=== PATIENT | male | born 1965 | race African-American/Black ===

== ENCOUNTER 2022-11-17 20:17 | Emergency (ER) | payer BC ==
[~2022-11-17] VITALS: Ht 170.2 cm; Wt 93.0 kg
[2022-11-17] VITALS (10 sets, daily range): BP systolic 88–120; BP diastolic 60–83
[2022-11-17 22:50] LABS: IMMATURE GRANULOCYTES 0.1 % (0.0-5.0); MEAN CORPUSCULAR HGB 34.1 pG CALC (26.0-32.0); MEAN CORPUSCULAR HGB CONC 32.7 g/dL CAL (32.0-36.0); PLATELET COUNT 203 thou/uL (130-400); RED BLOOD COUNT 4.16 mill/uL (4.70-6.10); RED CELL DISTRI WIDTH 12.4 % (11.5-15.5)
[2022-11-17 22:51] LABS: HEMATOCRIT 43.4 % (39.0-50.0); HEMOGLOBIN 14.2 g/dl (14.0-18.0); MEAN CELL VOLUME 104.3 fL CALC (80.0-100.0)
[2022-11-17 22:55] LABS: MANUAL DIFFERENTIAL YES
[2022-11-17 22:58] LABS: ALBUMIN 3.3 g/dL (3.2-5.0); ALKALINE PHOSPHATASE 65 u/l (38-126); ANION GAP 11 (6-22 (CALC)); BUN 11 mg/dL (9-20); BUN/CREATININE RATIO 11 (12-20 (CALC)); CARBON DIOXIDE 26 mmol/l (22-30); CHLORIDE 105 mmol/l (95-108); GFR FOR AFR.AMER. > 60 ML/MIN (>=60 (CALC)); GFR OTHER RACES > 60 ML/MIN (>=60 (CALC)); POTASSIUM 3.9 mmol/l (3.5-5.1); SGOT/AST 38 u/l (17-59); SODIUM 139 mmol/l (137-146); TOTAL PROTEIN 6.8 g/dL (6.3-8.2)
[2022-11-17 22:59] LABS: URINE BILIRUBIN - DIPSTICK NEGATIVE (NEGATIVE); URINE BLOOD DIPSTICK SMALL (NEGATIVE); URINE COLOR YELLOW; URINE GLUCOSE - DIPSTICK NEGATIVE (NEGATIVE); URINE KETONE NEGATIVE (NEGATIVE); URINE LEUK ESTERASE NEGATIVE (NEGATIVE); URINE PH 5.5 (4.5-8.0); URINE PROTEIN - DIPSTICK NEGATIVE (NEG-TRACE); URINE SPECIFIC GRAVITY 1.025; URINE UROBILINOGEN - DIPSTICK 0.2 E.U./dL (0.2)
[2022-11-17 23:05] LABS: BAND 0 % (0-8)
[2022-11-17 23:06] LABS: PLATELET ESTIMATE NORMAL
[2022-11-17 23:07] LABS: URINE NITRITE - DIPSTICK NEGATIVE (Negative)
[2022-11-17 23:08] LABS: URINE RBC 0-2 RBC/hpf (0-5)
[2022-11-17 23:09] LABS: URINE SQUAMOUS EPITHELIAL CELL RARE EPI/hpf (0-FEW)
[2022-11-17 23:14] LABS: BILIRUBIN, TOTAL 0.7 mg/dL (0.2-1.3)
[2022-11-18] VITALS (11 sets, daily range): BP systolic 92–117; BP diastolic 51–78
[2022-11-18] MEDS ORDERED: ULTRAM50 MG PO (01:58)
[2022-11-18] MEDS ORDERED: TAM75CAP PO (01:58)
== END 2022-11-18 02:59 | disposition home or self-care (01) | DRG 153 ==
LOC: ED 20:17
PROVIDERS: Emergency Medicine
DX: J11.1 Influenza due to unidentified influenza virus with other respiratory manifestations (principal); D72.110 Idiopathic hypereosinophilic syndrome [IHES]; F19.10 Other psychoactive substance abuse, uncomplicated; Z20.822 Contact with and (suspected) exposure to COVID-19